=== PATIENT | female | born 1975 | race African-American/Black ===

== ENCOUNTER 2023-02-04 15:32 | Emergency (ER) | payer OTHER ==
[~2023-02-04] VITALS: Ht 162 cm; Wt 95.0 kg
[2023-02-04 16:13] LABS: BASOPHILS % (AUTO) 0 % (0-10); EOSINOPHILS % (AUTO) 0 % (0-10); HEMATOCRIT 40 % (35-52); HEMOGLOBIN 12.6 g/dL (11.5-16.0); LYMPHOCYTES # (AUTO) 0.4 10^3/uL (1.0-4.0); LYMPHOCYTES % (AUTO) 4 % (12-44); MEAN CORPUSCULAR HEMOGLOBIN 26 pg (25-34); MEAN CORPUSCULAR HGB CONC 32 g/dL (32-36); MEAN CORPUSCULAR VOLUME 82 fL (80-99); MONOCYTES # (AUTO) 0.2 10^3/uL (0.0-1.0); MONOCYTES % (AUTO) 2 % (0-12); NEUTROPHILS # (AUTO) 9.5 10^3/uL (1.8-7.8); NEUTROPHILS % (AUTO) 93 % (42-75); PLATELET COUNT 356 10^3/uL (130-400); WHITE BLOOD COUNT 10.3 10^3/uL (4.3-11.0)
--- NOTE | 2023-02-04 16:15 | ED Abdominal Pain ---
General Chief Complaint: Abdominal/GI Problems Stated Complaint: VOMITING/LEFT SIDE PAIN/FEVER Nursing Triage Note: PT AMB TO TRIAGE PT HAS HAD FEVERS, ABD PAIN N/V/D. PT HAS L SIDE PAIN 05/16 Source of Information: Patient Exam Limitations: No Limitations History of Present Illness Date Seen by Provider: February 04, 2023 Time Seen by Provider: 15:37 Initial Comments 47-year-old female presents to the ED with left upper quadrant abdominal and left flank pain since this morning. She is also complaining of left hip pain. She reports that she woke up this morning and started vomiting several times. She states she has had 3 soft stools, denies loose stools or diarrhea. She reports feeling fevers, chills, and generalized achiness. She also reports a subconjunctival hemorrhage in her right eye which she noticed before she started vomiting. She states she was recently in [facility], returned on Saturday. Denies chest pain shortness of air, nausea, dysuria, urinary frequency, urinary urgency. Past medical history includes diabetes, hypertension, hyperlipidemia, depression. She takes venlafaxine, metformin, Ozempic -last dose was last Saturday, losartan, and pravastatin. She has had a gastric sleeve and an appendectomy. Allergies and Home Medications Allergies Coded Allergies: zolpidem (Verified Allergy, Unknown, 02/04/23) promethazine (Verified Adverse Reaction, Unknown, 02/04/23) Uncoded Allergies: ENVIRONMENTAL (Allergy, Mild, 02/04/23) Patient Home Medication List Home Medication List Reviewed: Yes Review of Systems Review of Systems Constitutional: see HPI Past Zjiypey-Maomro-Ikcnax Hx Patient Social History Tobacco Use?: No Substance use?: No Alcohol Use?: No Pt feels they are or have been: No Immunizations Up To Date Influenza Vaccine Up-to-Date: Yes; Up-to-Date First/Initial COVID19 Vaccinat: YES Second COVID19 Vaccination Nigel: YES Third COVID19 Vaccination Date: YES Past Medical History Surgery/Hospitalization HX: DIABETIC, HTN, CHOLESTEROL, GASTRIC SLEEVE, APPY Physical Exam Vital Signs Vital Signs - First Documented 02/04/23 15:35 Temp 38.8 Pulse 143 Resp 28 Pulse Ox 99 Capillary Refill : Less Than 3 Seconds Height/Weight/BMI Height: '" Weight: lbs. oz. kg; 36.00 BMI Method: General Appearance: WD/WN, no apparent distress Neck: supple, normal inspection Respiratory: lungs clear, normal breath sounds, no respiratory distress, no accessory muscle use Cardiovascular: regular rate, rhythm Gastrointestinal: normal bowel sounds, non tender, soft Extremities: normal range of motion, normal inspection Back: No CVA tenderness (R); CVA tenderness (L) Neurologic/Psychiatric: alert, normal mood/affect Skin: normal color, warm/dry Focused Exam Lactate Level 02/04/23 16:00: Lactic Acid Level 2.22*H 02/04/23 18:24: Lactic Acid Level 1.99 Lactic Acid Level Laboratory Tests Test 02/04/23 16:00 02/04/23 18:24 Lactic Acid Level 2.22 MMOL/L (0.50-2.00) *H 1.99 MMOL/L (0.50-2.00) Progress/Results/Core Measures Results/Orders Lab Results Laboratory Tests Test 02/04/23 16:00 02/04/23 16:18 02/04/23 18:24 Range/Units White Blood Count 10.3 4.3-11.0 10^3/uL Red Blood Count 4.86 3.80-5.11 10^6/uL Hemoglobin 12.6 11.5-16.0 g/dL Hematocrit 40 35-52 % Mean Corpuscular Volume 82 80-99 fL Mean Corpuscular Hemoglobin 26 25-34 pg Mean Corpuscular Hemoglobin Concent 32 32-36 g/dL Red Cell Distribution Width 14.2 10.0-14.5 % Platelet Count 356 130-400 10^3/uL Mean Platelet Volume 9.0 9.0-12.2 fL Immature Granulocyte % (Auto) 1 % Neutrophils (%) (Auto) 93 H 42-75 % Lymphocytes (%) (Auto) 4 L 12-44 % Monocytes (%) (Auto) 2 0-12 % Eosinophils (%) (Auto) 0 0-10 % Basophils (%) (Auto) 0 0-10 % Neutrophils # (Auto) 9.5 H 1.8-7.8 10^3/uL Lymphocytes # (Auto) 0.4 L 1.0-4.0 10^3/uL Monocytes # (Auto) 0.2 0.0-1.0 10^3/uL Eosinophils # (Auto) 0.0 0.0-0.3 10^3/uL Basophils # (Auto) 0.0 0.0-0.1 10^3/uL Immature Granulocyte # (Auto) 0.1 0.0-0.1 10^3/uL Neutrophils % (Manual) 91 % Lymphocytes % (Manual) 3 % Monocytes % (Manual) 3 % Eosinophils % (Manual) 0 % Basophils % (Manual) 0 % Band Neutrophils 3 % Blood Morphology Comment NORMAL Prothrombin Time 13.0 12.2-14.7 SEC INR Comment 0.9 0.8-1.4 Activated Partial Thromboplast Time 32 24-35 SEC Sodium Level 138 135-145 MMOL/L Potassium Level 4.1 3.6-5.0 MMOL/L Chloride Level 105 98-107 MMOL/L Carbon Dioxide Level 19 L 21-32 MMOL/L Anion Gap 14 5-14 MMOL/L Blood Urea Nitrogen 20 H 7-18 MG/DL Creatinine 0.82 0.60-1.30 MG/DL Estimat Glomerular Filtration Rate 88 BUN/Creatinine Ratio 24 Glucose Level 121 H 70-105 MG/DL Lactic Acid Level 2.22 *H 1.99 0.50-2.00 MMOL/L Calcium Level 8.7 8.5-10.1 MG/DL Corrected Calcium 8.9 8.5-10.1 MG/DL Total Bilirubin 0.4 0.1-1.0 MG/DL Aspartate Amino Transf (AST/SGOT) 15 5-34 U/L Alanine Aminotransferase (ALT/SGPT) 15 0-55 U/L Alkaline Phosphatase 77 40-136 U/L Total Protein 7.3 6.4-8.2 GM/DL Albumin 3.8 3.2-4.5 GM/DL Amylase Level 104 25-125 U/L Lipase 66 8-78 U/L Urine Color YELLOW Urine Clarity CLEAR Urine pH 6.0 5-9 Urine Specific [place] 1.020 1.016-1.022 Urine Protein NEGATIVE NEGATIVE Urine Glucose (UA) NEGATIVE NEGATIVE Urine Ketones NEGATIVE NEGATIVE Urine Nitrite NEGATIVE NEGATIVE Urine Bilirubin NEGATIVE NEGATIVE Urine Urobilinogen 0.2 < = 1.0 MG/DL Urine Leukocyte Esterase NEGATIVE NEGATIVE Urine RBC (Auto) NEGATIVE NEGATIVE Urine RBC NONE /HPF Urine WBC NONE /HPF Urine Squamous Epithelial Cells 0-2 /HPF Urine Crystals NONE /LPF Urine Bacteria NEGATIVE /HPF Urine Casts NONE /LPF Urine Mucus NEGATIVE /LPF Urine Culture Indicated NO My Orders Orders - FILOMENA DELGADO APRN Ua Culture If Indicated (02/04/23 15:36) Urine Bedside (02/04/23 15:36) Cbc With Automated Diff (02/04/23 16:05) Comprehensive Metabolic Panel (02/04/23 16:05) Blood Culture (02/04/23 16:05) Protime With Inr (02/04/23 16:05) Partial Thromboplastin Time (02/04/23 16:05) Ed Iv/Invasive Line Start (02/04/23 16:05) Vital Signs Adult Sepsis Patie Q15M (02/04/23 16:05) Lactic Acid Analyzer (02/04/23 16:05) Ns Iv 1000 Ml (Sodium Chloride 0.9%) (02/04/23 16:15) Ct Abdomen/Pelvis W (02/04/23 16:05) Manual Differential (02/04/23 16:00) Iohexol Injection (Omnipaque 350 Mg/Ml 1 (02/04/23 16:45) Received Contrast (Hold Metformin- Contr (02/04/23 16:45) Sodium Chloride Flush (Catheter Flush Sy (02/04/23 16:45) Acetaminophen Tablet (Tylenol Tablet) (02/04/23 17:00) Chest Pa/Lat (2 View) (02/04/23 17:15) Ketorolac Injection (Toradol Injection) (02/04/23 18:15) Lipase (02/04/23 19:57) Amylase (02/04/23 19:57) Ondansetron Injection (Zofran Injectio (02/04/23 21:00) Medications Given in ED Current Medications Medications Dose Ordered Sig/Bradford Route Start Time Stop Time Status Last Admin Dose Admin Acetaminophen 1,000 mg ONCE ONCE PO 02/04/23 17:00 02/04/23 17:01 DC 02/04/23 17:21 1,000 MG Iohexol 100 ml ONCE ONCE IV 02/04/23 16:45 02/04/23 16:46 DC 02/04/23 16:49 80 ML Ketorolac Tromethamine 15 mg ONCE ONCE IVP 02/04/23 18:15 02/04/23 18:16 DC 02/04/23 18:17 15 MG Ondansetron HCl 4 mg ONCE ONCE IVP 02/04/23 21:00 02/04/23 21:01 DC 02/04/23 21:04 4 MG Sodium Chloride 10 ml NEEDED PRN IV 02/04/23 16:45 02/04/23 16:49 10 ML Vital Signs/I&O 02/04/23 15:35 Temp 38.8 Pulse 143 Resp 28 B/P (MAP) Pulse Ox 99 Progress Progress Note : Time: 16:15 Progress Note Patient seen and evaluated, resting comfortably in bed, no acute distress. Based on exam and symptoms, concern for pyelonephritis or kidney stones. Septic work-up initiated including CBC, CMP, coags, lactic acid, blood cultures x2, UA with culture, urine , CT abdomen pelvis. IV fluids ordered. Diagnostic Imaging Diagonstic Imaging: Xray Plain Films/CT/US/NM/MRI: chest Comments [facility] [place] NAME: NISHA PASCAL [facility] REC#: [id number] PT STATUS: REG ER : 1975 PHYSICIAN: FILOMENA DELGADO APRN ADMIT DATE: 02/04/23/ER Draft Date of Exam:02/04/23 CHEST PA/LAT (2 VIEW) INDICATION: Pulmonary nodules, fever, vomiting. COMPARISON: None. FINDINGS: Frontal and lateral views of the chest demonstrate normal heart size and pulmonary vascularity. The lungs are clear. There are no signs of infiltrate, pleural effusions or pneumothoraces. The visualized osseous structures show no acute abnormalities. IMPRESSION: 1. No acute process. No signs of infiltrates, effusions or pneumothoraces. Dictated on workstation # [id number] Dict: 02/04/23 1739 Trans: 02/04/23 1742 [id number] Interpreted by: JORDAN ACEVEDO MD Electronically signed by: Diagonstic Imaging: CT Plain Films/CT/US/NM/MRI: abdomen Comments [facility] [place] NAME: NISHA PASCLA [facility] REC#: [id number] PT STATUS: REG ER : 1975 PHYSICIAN: FILOMENA DELGADO APRN ADMIT DATE: 02/04/23/ER Signed Date of Exam:02/04/23 CT ABDOMEN/PELVIS W PROCEDURE: CT abdomen and pelvis with contrast. TECHNIQUE: Multiple contiguous axial images were obtained through the abdomen and pelvis after administration of intravenous contrast. Auto Exposure Controls were utilized during the CT exam to meet ALARA standards for radiation dose reduction. All CT scans use one or more of the following dose optimizing techniques: automated exposure control, MA and/or KvP adjustment based on patient size and exam type or iterative reconstruction. DATE: February 04, 2023. COMPARISON: None. INDICATION: 47-year-old female, fever. Abdominal pain. Nausea, vomiting, and diarrhea. FINDINGS: There is a 4 mm noncalcified left lower lobe pulmonary nodule on axial image 19 and a 5 mm left lower lobe pulmonary nodule on axial image 13. There is a 3 mm left lower lobe pulmonary nodule on axial image 10. The heart is not enlarged. There is no identified pericardial effusion. There is diffuse fatty infiltration of the liver. The liver is unremarkable in size and contour. There is no identified liver lesion. The main, right, and left portal veins are patent. The gallbladder is unremarkable. There is no intrahepatic or extrahepatic bile duct dilation. The main pancreatic duct is not abnormally dilated. Unremarkable appearance of the pancreatic parenchyma. The spleen is normal in size. The adrenal glands are unremarkable. Unremarkable appearance of the renal parenchyma. The urinary collecting systems are not distended. There is no identified renal or ureteral stone. The urinary bladder is collapsed and not well evaluated. Limited CT assessment of the uterus and adnexa is unremarkable. The intestinal tract is not distended. There are sutures at the level of the cecum. There is no evidence of acute appendicitis. There are sutures along the stomach. There is no free intraperitoneal air. There is no drainable fluid collection. There is no sizable volume free fluid in the abdomen or pelvis. There are atherosclerotic calcifications. There is no identified abnormally enlarged lymph node in the abdomen or pelvis which meets CT size criteria for adenopathy. There is no identified acute bony abnormality. IMPRESSION: 1. No identified acute abnormality in the abdomen or pelvis. 2. Diffuse fatty infiltration of the liver. 3. Subcentimeter left lower lobe pulmonary nodules measuring up to maximally 5 mm in size. Followup CT chest without contrast is recommended for further assessment. Dictated by: Dictated on workstation # [id number] Dict: 02/04/23 1654 Trans: 02/04/23 1708 [id number] Interpreted by: XOCHILT COX MD Electronically signed by: XOCHILT COX MD 02/04/23 1708 Departure Impression Primary Impression: Gastroenteritis Disposition: HOME, SELF-CARE Condition: Stable Departure-Patient Inst. Decision time for Depature: 21:07 Referrals: NO,LOCAL PHYSICIAN (PCP/Family) Primary Care Physician Patient Instructions: Viral Gastroenteritis in Adults Add. Discharge Instructions: Take Zofran as needed for nausea or vomiting. Make sure you drink plenty of water for the next couple days. Follow-up with primary care provider, call them tomorrow to schedule an appointment. Return for severe pain, recurrent vomiting, multiple episodes of diarrhea, or any other new, concerning, or worsening symptoms. All discharge instructions reviewed with patient and/or family. Voiced understanding. Scripts Ondansetron (Ondansetron Odt) 4 Mg Tab.rapdis 4 MG SL Q4H PRN for NAUSEA/VOMITING, #20 TAB 0 Refills Prov: FILOMENA DELGADO APRN 02/04/23 FILOMENA DELGADO APRN February 04, 2023 16:15
[2023-02-04 16:22] LABS: ALBUMIN 3.8 GM/DL (3.2-4.5); POTASSIUM 4.1 MMOL/L (3.6-5.0)
[2023-02-04 16:23] LABS: CALCIUM 8.7 MG/DL (8.5-10.1)
[2023-02-04] MEDS: NS IV 1000 ML 1,000 ML IV SCH ×2 (16:24→18:17)
[2023-02-04 16:25] LABS: TOTAL PROTEIN 7.3 GM/DL (6.4-8.2)
[2023-02-04 16:26] LABS: BILIRUBIN,TOTAL 0.4 MG/DL (0.1-1.0)
[2023-02-04 16:28] LABS: CREATININE SERUM 0.82 MG/DL (0.60-1.30)
[2023-02-04 16:31] LABS: BILIRUBIN,URINE NEGATIVE (NEGATIVE); CLARITY,URINE CLEAR; COLOR,URINE YELLOW; GLUCOSE, URINE (UA) NEGATIVE (NEGATIVE); KETONES,URINE NEGATIVE (NEGATIVE); LEUKOCYTE ESTERASE ,URINE NEGATIVE (NEGATIVE); NITRITE,URINE NEGATIVE (NEGATIVE); PROTEIN,URINE NEGATIVE (NEGATIVE)
[2023-02-04 16:42] LABS: BACTERIA,URINE NEGATIVE /HPF; SQUAMOUS EPITHELIAL CELL,UR 0-2 /HPF
[2023-02-04] MEDS ORDERED: CATHETER FLUSH 10 ML SYR IV PRN (16:45)
[2023-02-04] MEDS ORDERED: IOHEXOL 350 MG/ML 100 ML (OMNIPAQUE 350) VIAL IV ONE (16:45)
[2023-02-04] MEDS ORDERED: HOLD METFORMIN - RECEIVED CONTRAST 20 ML VIAL IV SCH (16:45)
[2023-02-04 16:48] LABS: INR 0.9 (0.8-1.4)
[2023-02-04 16:50] LABS: BAND NEUTROPHILS 3 %; BASOPHILS % (MANUAL) 0 %; EOSINOPHILS % (MANUAL) 0 %; LYMPHOCYTES % (MANUAL) 3 %; MONOCYTES % (MANUAL) 3 %; NEUTROPHILS % (MANUAL) 91 %; RBC MORPH NORMAL
[2023-02-04] MEDS ORDERED: ACETAMINOPHEN 500 MG TAB (TYLENOL) PO ONE (17:00)
--- NOTE | 2023-02-04 17:02 | Diagnostic Imaging Report ---
PROCEDURE: CT abdomen and pelvis with contrast. TECHNIQUE: Multiple contiguous axial images were obtained through the abdomen and pelvis after administration of intravenous contrast. Auto Exposure Controls were utilized during the CT exam to meet ALARA standards for radiation dose reduction. All CT scans use one or more of the following dose optimizing techniques: automated exposure control, MA and/or KvP adjustment based on patient size and exam type or iterative reconstruction. DATE: February 04, 2023. COMPARISON: None. INDICATION: 47-year-old female, fever. Abdominal pain. Nausea, vomiting, and diarrhea. FINDINGS: There is a 4 mm noncalcified left lower lobe pulmonary nodule on axial image 19 and a 5 mm left lower lobe pulmonary nodule on axial image 13. There is a 3 mm left lower lobe pulmonary nodule on axial image 10. The heart is not enlarged. There is no identified pericardial effusion. There is diffuse fatty infiltration of the liver. The liver is unremarkable in size and contour. There is no identified liver lesion. The main, right, and left portal veins are patent. The gallbladder is unremarkable. There is no intrahepatic or extrahepatic bile duct dilation. The main pancreatic duct is not abnormally dilated. Unremarkable appearance of the pancreatic parenchyma. The spleen is normal in size. The adrenal glands are unremarkable. Unremarkable appearance of the renal parenchyma. The urinary collecting systems are not distended. There is no identified renal or ureteral stone. The urinary bladder is collapsed and not well evaluated. Limited CT assessment of the uterus and adnexa is unremarkable. The intestinal tract is not distended. There are sutures at the level of the cecum. There is no evidence of acute appendicitis. There are sutures along the stomach. There is no free intraperitoneal air. There is no drainable fluid collection. There is no sizable volume free fluid in the abdomen or pelvis. There are atherosclerotic calcifications. There is no identified abnormally enlarged lymph node in the abdomen or pelvis which meets CT size criteria for adenopathy. There is no identified acute bony abnormality. IMPRESSION: 1. No identified acute abnormality in the abdomen or pelvis. 2. Diffuse fatty infiltration of the liver. 3. Subcentimeter left lower lobe pulmonary nodules measuring up to maximally 5 mm in size. Followup CT chest without contrast is recommended for further assessment. Dictated by: Dictated on workstation # [id number]
--- NOTE | 2023-02-04 17:42 | Diagnostic Imaging Report ---
INDICATION: Pulmonary nodules, fever, vomiting. COMPARISON: None. FINDINGS: Frontal and lateral views of the chest demonstrate normal heart size and pulmonary vascularity. The lungs are clear. There are no signs of infiltrate, pleural effusions or pneumothoraces. The visualized osseous structures show no acute abnormalities. IMPRESSION: 1. No acute process. No signs of infiltrates, effusions or pneumothoraces. Dictated by: Dictated on workstation # [id number]
[2023-02-04] MEDS ORDERED: KETOROLAC 15 MG/ML VIAL IVP ONE (18:15)
[2023-02-04 20:10] LABS: AMYLASE 104 U/L (25-125)
[2023-02-04 20:59] LABS: LIPASE 66 U/L (8-78)
[2023-02-04] MEDS ORDERED: ONDANSETRON 4 MG/2 ML (SDV) Z0FRAN IVP ONE (21:00)
[2023-02-04] MEDS ORDERED: RX-ONDANSETRON 4 MG ODT (ZOFRAN) PPK #4 PO STA (21:06)
[2023-02-04] MEDS ORDERED: ONDA4TAB11 SL (21:08)
== END 2023-02-04 21:49 | disposition home or self-care (01) ==
LOC: ER 15:35
DX: K52.9 Noninfective gastroenteritis and colitis, unspecified (principal); F32.A Depression, unspecified; E11.9 Type 2 diabetes mellitus without complications; I10 Essential (primary) hypertension; E78.5 Hyperlipidemia, unspecified; Z98.84 Bariatric surgery status; Z90.49 Acquired absence of other specified parts of digestive tract; Z79.84 Long term (current) use of oral hypoglycemic drugs; Z79.899 Other long term (current) drug therapy
CPT/HCPCS: 36415; 71046; 74177; 80053; 81000; 82150; 83605; 83690; 84703; 85007; 85027; 85610; 85730; 87040